=== PATIENT | female | born 1940 | race Two or more races ===

== ENCOUNTER 2023-06-27 19:09 | Emergency (ER) | payer OTHER ==
[~2023-06-27] VITALS: Ht 152.4 cm; Wt 61.2 kg
[2023-06-27] MEDS ORDERED: LEVOTHYROXINE25 MCG PO (19:23)
[2023-06-27] MEDS ORDERED: NEURONTIN800 MG PO (19:23)
[2023-06-27] MEDS ORDERED: NORVASC2.5 M1 (19:24)
[2023-06-27] MEDS ORDERED: ESTAZOLAM1 MG (19:24)
[2023-06-27] MEDS ORDERED: SINEMET 25-1001 EACH (19:24)
[2023-06-27 20:14] LABS: MEAN CELL VOLUME 95.5 fL (80.00-100.00); MEAN CORPUSCULAR HEMOGLOBIN 31.8 pg (27.00-32.0); MEAN CORPUSCULAR HGB CONC 33.4 g/dl (32.0-36.0); PLATELET COUNT 241 K/uL (150-450); RED BLOOD COUNT 3.45 M/uL (4.00-6.00); RED CELL DISTRIBUTION WIDTH 15.4 % (11.5-14.5)
[2023-06-27 20:32] LABS: ALKALINE PHOSPHATASE 64 U/L (50-136); ANION GAP 9 (10.0-20.0); AST/SGOT 23 U/L (15-37); BILIRUBIN TOTAL 0.48 mg/dL (0.3-1.2); BLOOD UREA NITROGEN 32 mg/dL (7-18); BUN CREA RATIO 37 (7.0-25.0); CALCIUM 9.4 mg/dL (8.5-10.1); CARBON DIOXIDE 31 mEq/L (21-32); CHLORIDE 102 mmol/L (98-107); CREATININE SERUM 0.87 mg/dL (0.55-1.02); GFR 62.49; GLUCOSE FASTING 105 mg/dL (65-100); OSMOLALITY SERUM 281 MOSM/KG (275-295); POTASSIUM 4.91 mEq/L (3.5-5.1); SODIUM 137 mmol/L (136-145)
[2023-06-27 20:45] LABS: ALT/SGPT < 6 U/L (12-78)
== END 2023-06-27 21:04 | disposition home or self-care (01) ==
LOC: ER 19:09
PROVIDERS: Emergency Medicine
DX: M77.8 Other enthesopathies, not elsewhere classified (principal); R29.898 Other symptoms and signs involving the musculoskeletal system; G20.A1 Parkinson's disease without dyskinesia, without mention of fluctuations